=== PATIENT | female | born 1990 | race Two or more races ===

== ENCOUNTER 2021-11-24 14:15 | Inpatient (IN) | payer OTHER ==
[2021-11-24] MEDS ORDERED: CITRIC ACID/SODIUM CITRATE 30 ML UNIT-DOSE CUP PO ONE (15:00)
[2021-11-24] MEDS ORDERED: ELECTROLYTE-148 SOLN 500 ML IV SCH ×2 (15:00→15:30)
[2021-11-24 15:48] LABS: BASO % 0.3 % (0-2.0); EOS % 0.4 % (0-4.5); HEMATOCRIT 34.9 % (32.4-45.2); HEMOGLOBIN 11.6 GM/dL (10.7-15.3); LYMPH % 20.3 % (8-40); MCH 26.4 pg (25.7-33.7); MCHC 33.2 g/dl (32.0-36.0); MEAN CELL VOLUME 79.6 fl (80-96); MEAN PLT VOLUME 9.4 fl (7.5-11.1); MONO % 7.1 % (3.8-10.2); NEUT % 71.9 % (42.8-82.8); PLATELET COUNT 194 10^3/uL (134-434); RBC 4.39 M/mm3 (3.60-5.2); RDW 14.7 % (11.6-15.6); WHITE BLOOD COUNT 8.4 K/mm3 (4.0-10.0)
[2021-11-24 15:55] LABS: INR 0.99 (0.83-1.09); PROTHROMBIN TIME (PATIENT) 11.4 SEC (9.7-13.0)
[2021-11-24 15:58] LABS: ACTIVATED PTT 23.9 SECONDS (25.2-36.5)
[2021-11-24 16:05] VITALS: BMI 47.0
[2021-11-24 16:05] LABS: CALCIUM 9.2 mg/dL (8.5-10.1)
[2021-11-24 16:06] LABS: BLOOD UREA NITROGEN 7.8 mg/dL (7-18)
[2021-11-24 16:09] LABS: CREATININE 0.5 mg/dL (0.55-1.3)
[2021-11-24] MEDS ORDERED: morphine SULFATE/PF 1 MG/2 ML (2cc Syringe - QUVA) ONE (18:52)
[2021-11-24] MEDS ORDERED: ONDANSETRON 4 MG/2 ML VIAL IVPUSH PRN (19:08)
[2021-11-24] MEDS ORDERED: morphine SULFATE/PF 1 MG/2 ML (2cc Syringe - QUVA) SPIN ONE (19:08)
[2021-11-24] MEDS ORDERED: OXYTOCIN 20 UNITS in 0.9% NS 20 UNIT/1,000 ML INFUS.BAG IV ONE (20:11)
[2021-11-24] MEDS ORDERED: DEXAMETHASONE SOD PHOSPHATE 4 MG/1 ML VIAL ONE (20:17)
[2021-11-24] MEDS ORDERED: OXYTOCIN 10 UNITS/ML VIAL ONE (20:17)
[2021-11-24] MEDS ORDERED: ONDANSETRON 4 MG/2 ML VIAL ONE (20:17)
[2021-11-24] MEDS ORDERED: ceFAZolin SODIUM 1 GM VIAL ONE (20:17)
[2021-11-24] MEDS: OXYTOCIN 20 UNITS in 0.9% NS 20 UNIT/1,000 ML INFUS.BAG IV SCH (21:20)
[2021-11-24 21:26] LABS: CORD BASE EXCESS -2.2 mmol/L (0-2); CORD PCO2 51.8 mmHg (30-78); CORD pH 7.302 (7.14-7.44)
[2021-11-24 21:31] LABS: CORD pH 7.303 (7.14-7.44)
[2021-11-24 21:32] LABS: CORD BASE EXCESS -0.1 mmol/L (0-2); CORD HCO3 27.7 mmHg (20-29); CORD PCO2 57.1 mmHg (30-78)
[2021-11-24] MEDS ORDERED: SENNOSIDES/DOCUSATE COMBO (SENNA PLUS) TABLET (UD) PO PRN (21:32)
[2021-11-24] MEDS ORDERED: ACETAMINOPHEN 325 MG TABLET (FP) PO PRN (21:32)
[2021-11-25] MEDS: IBUPROFEN 600 MG TABLET (FP) PO PRN ×4 (04:42→21:34)
[2021-11-25] MEDS: OXYTOCIN 20 UNITS in 0.9% NS 20 UNIT/1,000 ML INFUS.BAG IV SCH ×2 (04:42→21:44)
[2021-11-25] MEDS: SIMETHICONE 80 MG TAB.CHEW (FP) PO PRN ×2 (04:42→21:37)
[2021-11-25 09:19] LABS: BASO % 0.3 % (0-2.0); EOS % 0.1 % (0-4.5); HEMATOCRIT 29.5 % (32.4-45.2); HEMOGLOBIN 9.8 GM/dL (10.7-15.3); LYMPH % 19.7 % (8-40); MCH 26.6 pg (25.7-33.7); MCHC 33.1 g/dl (32.0-36.0); MEAN CELL VOLUME 80.5 fl (80-96); MEAN PLT VOLUME 9.6 fl (7.5-11.1); NEUT % 72.9 % (42.8-82.8); PLATELET COUNT 166 10^3/uL (134-434); RBC 3.67 M/mm3 (3.60-5.2); RDW 14.1 % (11.6-15.6); WHITE BLOOD COUNT 10.1 K/mm3 (4.0-10.0)
[2021-11-25] MEDS ORDERED: oxyCODONE HCL 5 MG TABLET PO PRN (09:32)
[2021-11-26] MEDS: IBUPROFEN 600 MG TABLET (FP) PO PRN ×2 (05:21→16:47)
[2021-11-26] MEDS: SIMETHICONE 80 MG TAB.CHEW (FP) PO PRN (05:21)
[2021-11-26] MEDS: guaiFENesin/D-METHORPHAN HB 10 ML UNIT-DOSE CUPS PO PRN ×2 (09:58→20:10)
[2021-11-27] MEDS: IBUPROFEN 600 MG TABLET (FP) PO PRN (00:34)
[2021-11-27] MEDS: SIMETHICONE 80 MG TAB.CHEW (FP) PO PRN (00:34)
[2021-11-27] MEDS: guaiFENesin/D-METHORPHAN HB 10 ML UNIT-DOSE CUPS PO PRN (02:57)
[2021-11-27 08:47] LABS: BASO % 0.2 % (0-2.0); EOS % 1.1 % (0-4.5); HEMATOCRIT 30.6 % (32.4-45.2); HEMOGLOBIN 9.9 GM/dL (10.7-15.3); LYMPH % 19.7 % (8-40); MCH 26.2 pg (25.7-33.7); MCHC 32.3 g/dl (32.0-36.0); MEAN CELL VOLUME 81.2 fl (80-96); MEAN PLT VOLUME 9.5 fl (7.5-11.1); MONO % 7.6 % (3.8-10.2); NEUT % 71.4 % (42.8-82.8); PLATELET COUNT 211 10^3/uL (134-434); RBC 3.76 M/mm3 (3.60-5.2); RDW 14.5 % (11.6-15.6)
[2021-11-27 09:21] VITALS: BP 112/77; PULSE 102; TEMP 98.3
== END 2021-11-27 11:00 | disposition home or self-care (01) | DRG 540 ==
LOC: JLDR 14:15 → J3W 23:10
PROVIDERS: ADMIT Obstetrics & Gynecology Maternal & Fetal Medicine; ATTEND Obstetrics & Gynecology Maternal & Fetal Medicine
PROC: 10D00Z1 Extraction of Products of Conception, Low, Open Approach (ICD-10-PCS; principal; 2021-11-24)
DX: O13.3 Gestational [pregnancy-induced] hypertension without significant proteinuria, third trimester (principal); O36.8390 Maternal care for abnormalities of the fetal heart rate or rhythm, unspecified trimester, not applicable or unspecified; O34.211 Maternal care for low transverse scar from previous cesarean delivery; O99.214 Obesity complicating childbirth; E66.01 Morbid (severe) obesity due to excess calories; Z3A.37 37 weeks gestation of pregnancy; Z37.0 Single live birth
CPT/HCPCS: 36415; 36600; 80048; 82803; 85025; 85610; 85730; 86780; 86850; 86900; 86901; 88307-TC; C9803; U0003; U0005